=== PATIENT | male | born 1995 | race Hispanic/Latino ===

== ENCOUNTER 2024-11-01 17:13 | Emergency (ER) | payer BC ==
[~2024-11-01] VITALS: Ht 170.2 cm; Wt 71.7 kg
[2024-11-01 17:30] VITALS: PULSE 84; RESP 14; TEMP 98
[2024-11-01] MEDS ORDERED: KETOROLAC TROME10 MG PO (17:34)
[2024-11-01] MEDS: KETOROLAC TROMETHAMINE 60 MG/2 ML VIAL IM STA (17:58)
[2024-11-01 18:45] VITALS: BP 107/74; PULSE 75; RESP 17; TEMP 98.6; O2SAT 97
== END 2024-11-01 18:46 | disposition home or self-care (01) ==
LOC: ER 17:26
DX: M79.662 Pain in left lower leg (principal); M79.661 Pain in right lower leg; S86.892A Other injury of other muscle(s) and tendon(s) at lower leg level, left leg, initial encounter; S86.891A Other injury of other muscle(s) and tendon(s) at lower leg level, right leg, initial encounter; W22.8XXA Striking against or struck by other objects, initial encounter
CPT/HCPCS: 99283; J1885